=== PATIENT | female | born 1990 | race Caucasian/White ===

== ENCOUNTER 2016-10-29 20:09 | Emergency (ER) | payer OTHER ==
[~2016-10-29] VITALS: Ht 160 cm; Wt 79.5 kg
[~2016-10-29 20:09] MED LIST: ALBUTHFA; IBUP-1152 PO; PREN-105 PO; QVAR80 INH
[2016-10-29 20:31] VITALS: BP 122/86; PULSE 65; RESP 18; O2SAT 100
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
[2016-10-29 23:07] VITALS: BP 115/78; PULSE 62; O2SAT 100
== END 2016-10-29 23:08 | disposition home or self-care (01) ==
LOC: SED 20:09
DX: S16.1XXA Strain of muscle, fascia and tendon at neck level, initial encounter (principal); V49.49XA Driver injured in collision with other motor vehicles in traffic accident, initial encounter; Y93.9 Activity, unspecified; Y92.410 Unspecified street and highway as the place of occurrence of the external cause; Y99.8 Other external cause status; J45.909 Unspecified asthma, uncomplicated; Z88.5 Allergy status to narcotic agent